=== PATIENT | female | born 1950 | race Caucasian/White ===

== ENCOUNTER 2024-10-03 17:45 | Emergency (ER) | payer MEDICARE, MEDICAID ==
[~2024-10-03] VITALS: Ht 162.6 cm; Wt 75.8 kg
--- NOTE | ~2024-10-03 | EKG ---
[facility] [address] [facility] [place], [place] [address] Draft EK completed, results pending confirmation PATIENT NAME: ALLEN HORN Electrocardiogram DATE OF : 48 PHYSICIAN: PRELIMINARY REPORT #: [id number] REPORT IS CONFIDENTIAL AND NOT TO BE RELEASED WITHOUT AUTHORIZATION
[2024-10-03] MEDS ORDERED: NITROGLYCERIN 0.4 MG SUBL SL PRN (18:00)
[2024-10-03 18:18] LABS: BASOPHILS 0.4 % (0-2); EOSINOPHILS 0.4 % (0-6); HEMOGLOBIN 9.9 g/dL (12.0-18.0); MCH 27.7 (27-36); MCHC 33.1 g/dl (30-36); MCV 83.7 fl (81-99); MONOCYTES 4.7 % (0-12); NEUTROPHILS 81.5 % (39-80); PLATELET COUNT 257 K/uL (140-440); RBC 3.58 M/ul (4.3-5.7); RDW 24.5 (10.5-15.0)
[2024-10-03] MEDS ORDERED: CLOPIDOGREL BISULFATE 75 MG TAB PO ONE (18:30)
[2024-10-03] MEDS ORDERED: HEPARIN SOD,PORK IN 0.45% NACL 500 ML IV SCH (18:30)
[2024-10-03] MEDS ORDERED: MORPHINE SULFATE 4 MG/ML VIAL IV PRN (18:30)
[2024-10-03] MEDS ORDERED: LORazepam 2 MG/ML VIAL IV ONE ×2 (18:30→18:45)
[2024-10-03] MEDS ORDERED: HEParin SOD (PORCINE) 5,000 UNIT/ML VIAL IV ONE (18:30)
[2024-10-03] MEDS ORDERED: LORazepam 2 MG/ML VIAL ONE (18:32)
[2024-10-03 18:35] LABS: ALBUMIN 3.8 g/dL (3.4-5.0); ALBUMIN/GLOBULIN RATIO 0.93 (1.1-2.4); ALKALINE PHOSPHATASE 106 U/L (46-116); ALT (SGPT) 46 U/L (14-59); ANION GAP 13.9 (7-21); AST (SGOT) 324 U/L (15-37); BILIRUBIN, TOTAL 0.3 mg/dL (0.2-1.0); BUN/CREATININE RATIO 17.64 (6.0-28.6); CALCIUM 8.9 mg/dL (8.5-10.1); CARBON DIOXIDE 27 mmol/L (21-32); CHLORIDE 102 mmol/L (98-107); CREATININE, SERUM 1.19 mg/dL (0.55-1.02); GLOMERULAR FILTRATION RATE,EST 48 mL/min (>60); MAGNESIUM 1.8 mg/dL (1.8-2.4); POTASSIUM 3.9 mmol/L (3.5-5.1); PROTEIN, TOTAL 7.9 g/dL (6.4-8.2); UREA NITROGEN 21 mg/dL (7-18)
[2024-10-03 19:02] VITALS: BP 134/78
== END 2024-10-03 18:49 | disposition short-term general hospital (02) ==
LOC: ED 17:45
PROVIDERS: Emergency Medicine
DX: I21.09 ST elevation (STEMI) myocardial infarction involving other coronary artery of anterior wall (principal); Z88.5 Allergy status to narcotic agent
CPT/HCPCS: 36415; 71045; 80053; 83735; 84484; 85025; 85060; 93005; 93010; 96374; 96375; 99285-25; J1644; J2060

== ENCOUNTER 2024-10-10 20:15 | Inpatient (IN) | payer MEDICARE, MEDICAID ==
[~2024-10-10] VITALS: Ht 162.6 cm; Wt 75.8 kg
--- NOTE | 2024-10-10 20:15 | NUR ---
PT REC'D FROM [facility] VIA EMS TRANSPORT. PT ARRIVED ON STRETCHER, ALERT AND ORIENTED. PT ASSISTED TO BED, ORIENTED TO ROOM. REPORT REC'D. CALL [place] AND PERSONAL ITEMS IN REACH, BED IN LOW POSITION AND LOCKED, SIDERAILS UP X3, BED ALARM ON.
[2024-10-10] MEDS ORDERED: ATROPINE SULFATE 1% OPTH DROPS SL PRN (21:00)
[2024-10-10] MEDS ORDERED: OXYCODONE HCL 5 MG TAB PO PRN (21:00)
[2024-10-10] MEDS ORDERED: ARTIFICIAL TEARS 15 ML BTL OU PRN (21:00)
[2024-10-10] MEDS ORDERED: LORazepam 0.5 MG TAB PO PRN (21:00)
--- NOTE | 2024-10-10 21:00 | NUR ---
PT ASSISTED TO [facility] 1 PA WITH FWW, PT NOTED TO BE WEAK, NEEDING ASSISTANCE OOB, WEAK, SLOW GAIT. RETURNED TO BED. BED ALARM ON, BED LOW POSITION, LOCKED, SIDERAILS UP X3, CALL [place]LAND IN REACH
[2024-10-10 21:03] VITALS: BP 137/69
--- NOTE | 2024-10-10 21:09 | NUR ---
PATIENT ARRIVED TO THE FLOOR VIA EMS. PATIENT IS A XFER FROM [place]. PATIENT ARRIVED APPROX 2014. MD AT BEDSIDE TO COMPLETE ORDERS. ADMISSION COMPLETED.
[2024-10-10] MEDS ORDERED: ACETAMINOPHEN 325 MG TAB PO PRN (21:30)
[2024-10-10] MEDS ORDERED: ondansetron HCL 4 MG/2 ML VIAL IV PRN (21:30)
[2024-10-10 21:42] VITALS: BP 137/69
[2024-10-10] MEDS ORDERED: DEXTROSE 5% 1,000 ML IV PRN (21:45)
[2024-10-10] MEDS ORDERED: GLUCAGON,HUMAN RECOMBINANT 1 MG/ML VIAL SUB-Q PRN (21:45)
[2024-10-10] MEDS ORDERED: IBLOOD GLUCOSE TEST STRIP 1 EA TEST XX PRN (21:45)
[2024-10-10] MEDS ORDERED: DEXTROSE 50% 50 ML SYR IV PRN ×2 (21:45)
--- NOTE | 2024-10-10 22:05 | NUR ---
ASSESSMENT COMPLETED, PATIENT STATING SHE NEEDS TO GO TO [facility], STATES SHE HAS LEAKAGE WITH COUGHING. BROUGHT DEPEND TO PATIENT, SHE THREW BRIEF AND STATED "I DON'T LIKE THOSE". PT TAKEN TO [facility] WITH 1 PERSON ASSIST, FWW. RETURNED TO BED, SIDERAILS UP X3, CALL [place] IN REACH, BED LOW POSITION AND LOCKED, BED ALARM ON.
[2024-10-10] MEDS ORDERED: MENTHOL/CETYLPYRD CL 1 LOZ LOZENGE PO PRN (22:30)
--- NOTE | 2024-10-10 22:55 | NUR ---
PT ADMITTED, CARED FOR T/O SHIFT. PT STARTED TO BECOME AGITATED WHILE HAVING IV PLACED, REFUSED LAB DRAW. ORDER REC'D FOR IV ATIVAN FOR AGITATION.
[2024-10-10] MEDS ORDERED: LORazepam 2 MG/ML VIAL IV PRN (23:00)
--- NOTE | 2024-10-10 23:36 | NUR ---
AT 2315 RECEIVED REPORT FROM LUNA TREVIZO. PT IN BED, TV ON, EYES CLOSED, RESP EVEN AND UNLABORED. BED ALARM IN PLACE. LUNA.
[2024-10-11] VITALS (7 sets, daily range): BP systolic 100–146; BP diastolic 51–81
--- NOTE | 2024-10-11 00:34 | NUR ---
BED ALARM SOUNDING. PT UP TO BR WITH SBA, FWW. SL UNSTEADY; VOIDED, (MISSED HAT). ENCOURAGED TO WASH HANDS, BUT PT WALKED BACK TO BED INSTEAD. INDEPENDENT IN BED. NOTED NO RASH ON BACK SIDE, DESPITE PT FEELING "ITCHY". BED ALARM PLACED. WARM BLANKET PROVIDED. ENCOURAGED PT TO USE ALL LIGHT. CALL LIGHT WITHIN REACH.
[2024-10-11] MEDS ORDERED: ONDANSETRON 4 MG TAB ODT SL SCH (02:00)
--- NOTE | 2024-10-11 02:04 | NUR ---
frame bender and rn into room for 0200 vs. Pt requested to use br. SBA with fww.
--- NOTE | 2024-10-11 02:49 | NUR ---
VS COMPLETED. PT AWAKE AND EATING ICE CHIPS. BED ALARM IN PLACE
--- NOTE | 2024-10-11 04:43 | NUR ---
BED ALARM SOUNDING. AWAKE, AND NEEDING TO USE BATHROOM, CALL LIGHT WITHIN REACH. MADHU ASSIST UP TO WALKER, SLOW, SL UNSTEADY GAIT. NOTABLE DRY, NONPRODUCTIVE COUGH THIS SHIFT OFF AND ON. APPROPRIATE, NON IRRITATED MOOD NOTED. RN REPEATS PARTS OF CONVERSATION, PT NOT HEARS WELL, OR COMPREHENDS. LUNG SOUNDS CLEAR X 4. BACK TO BED, SITTING EATTING ICE CHIPS
--- NOTE | 2024-10-11 06:15 | NUR ---
WITH ENCOURAGEMENT AND REASONING TO WHY THE BLOOD NEEDS TO BE DRAWN, SHE ALLOWED LABS TO BE DRAWN. PT STATES SHE DOESN'T NEED MEDICAL CARE. PREFERING TO SLEEP WAS HER REASONING. CURRENTLY SLEEPING, BED ALARM ON.
[2024-10-11 06:21] LABS: HEMATOCRIT 31.1 % (35.0-50.0); HEMOGLOBIN 10.2 g/dL (12.0-18.0); MCH 27.4 (27-36); MCHC 32.8 g/dl (30-36); MCV 83.5 fl (81-99); PLATELET COUNT 128 K/uL (140-440); RBC 3.72 M/ul (4.3-5.7); RDW 24.1 (10.5-15.0)
[2024-10-11 06:30] LABS: BANDS, MANUAL DIFF 1; EOSINOPHILS, MANUAL DIFF 2; LYMPHOCYTES, MANUAL DIFF 17; MONOCYTES, MANUAL DIFF 9; NEUTROPHILS, MANUAL DIFF 71
[2024-10-11 06:36] LABS: ANION GAP 13.4 (7-21); BUN/CREATININE RATIO 24.49 (6.0-28.6); CALCIUM 7.9 mg/dL (8.5-10.1); CREATININE, SERUM 2.98 mg/dL (0.55-1.02); MAGNESIUM 1.8 mg/dL (1.8-2.4); POTASSIUM 3.4 mmol/L (3.5-5.1)
--- NOTE | 2024-10-11 06:55 | NUR ---
WITH PROMPTING, FIRM ENCOURAGEMENT PT PREFERED TO SLEEP, PT DID NOT OPEN EYES BUT OPENED HER MOUTH FOR DRINK WATER, AND SWALLOWED HER THYROID MEDICATION.
[2024-10-11] MEDS ORDERED: LEVOTHYROXINE SODIUM 50 MCG TAB PO SCH (07:00)
--- NOTE | 2024-10-11 07:21 | NUR ---
report from manager night.
[2024-10-11] MEDS ORDERED: SODIUM CHLORIDE 0.9% 1,000 ML IV SCH (07:30)
[2024-10-11] MEDS ORDERED: POTASSIUM CHLORIDE 10 MEQ TABCR PO ONE (07:30)
--- NOTE | 2024-10-11 07:43 | NUR ---
MORNING ASSESSMENT IS COMPLETE. PATIENT IS RESTING IN BED. O2 SATS ARE 100% ON ROOM AIR, EXPIRATORY WHEEZE NOTED IN ALL LUNG LAWRENCE. PATIENT IS UNABLE TO TELL NURSE WHEN SHE LAST HAD A BM, DENIES FEELING CONSTIPATED. PATIENT IS EATING ICE CHIPS, AWAITING BREAKFAST. PATIENT DENIES PAIN OR NAUSEA. PATIENT IS ABLE TO TAKE MEDS AND FOLLOW DIRECTIONS. BG IS 149 THIS MORNING. NO OTHER NEEDS AT THIS TIME.
[2024-10-11] MEDS ORDERED: IBLOOD GLUCOSE TEST STRIP 1 EA TEST XX SCH (08:00)
[2024-10-11] MEDS ORDERED: ASPIRIN 81 MG CHEW PO SCH (08:00)
[2024-10-11] MEDS ORDERED: INSULIN LISPRO 100 UNIT/ML ML SUB-Q SCH (08:00)
[2024-10-11] MEDS ORDERED: LOSARTAN POTASS25 MG PO (08:15)
[2024-10-11] MEDS ORDERED: ISOSORBIDE MONO30 MG PO (08:15)
[2024-10-11] MEDS ORDERED: NITROGLYCERIN0.4 MG SL (08:17)
[2024-10-11] MEDS ORDERED: METOPROLOL SUCCINATE 25 MG TABCR PO SCH (09:00)
[2024-10-11] MEDS ORDERED: ENOXAPARIN SODIUM 30 MG/0.3 ML SYR SUB-Q SCH (09:00)
[2024-10-11] MEDS ORDERED: SENNOSIDES/DOCUSATE 1 EA TAB PO SCH (09:00)
--- NOTE | 2024-10-11 09:00 | NUR ---
Attempted to speak with Nay. Notified by staff, pt is refusing all treatments. Pt does states she has a DrJonathan in [place], [place], but will not give his name. She lives with her Ex, but will not provide any infor or phone number. Pt denies she has any other family members. I was then notified by staff, pt has a brother and TIFFANIE who have assisted her in the past. Pt declines to answer further questions.
--- NOTE | 2024-10-11 09:10 | NUR ---
ATTEMPTING TO GIVEN PATIENT MORNING MEDICATIONS. PATIENT REFUSED LOVENOX, REFUSED SENNA. PATIENT AGREED TO TAKE METOPROLOL, BUT PLACED PILL CUP ON TOP OF HER FOOD. PT AND OT IN TO SEE PATIENT.
--- NOTE | 2024-10-11 09:25 | NUR ---
PATIENT IS RESTING IN BED.
--- NOTE | 2024-10-11 09:26 | NUR ---
UR CLINICAL REVIEW: 2 MN SALVADOR, MEETS INPT FOR STEMI AND CARLOZ IV FLUIDS, TREND LABS MEDICARE INPT 10/10/24 @ 2120 ORDER MATCHES REG NO AUTH REQUIRED PER MEDICARE RULES DC PLAN PENDING FURTHER EVAL, TREATMENT AND ASSESSMENT UNSURE GOALS OF CARE AT THIS TIME
--- NOTE | 2024-10-11 10:30 | NUR ---
AGAIN, ENCOURAGED PATIENT TO TAKE HER MORNING CARDIAC MEDS. PATIENT RESPONDED, "CAN'T I JUST SLEEP." PATIENT WENT BACK TO SLEEP.
--- NOTE | 2024-10-11 11:15 | NUR ---
PATIENT UP TO BATHROOM TO VOID. PATIENT AGREED TO TAKE HER CARDIAC MEDICATION FROM THIS MORNING.
[2024-10-11] MEDS ORDERED: PHARMACY RENAL DOSE ADJUSTMENT 1 DOSE MISC PO SCH (12:00)
--- NOTE | 2024-10-11 12:24 | NUR ---
PATIENT REFUSED SQ INSULIN FOR BG OF 196. PATIENT IS AGITATED REGARDING IV AND CURRENTLY UNHOOKED. PATIENT HAD 600ML OF IVF INSTEAD OF FULL LITER. PATIENT UP TO BATHROOM TO VOID AD SONNY. NO OTHER NEEDS AT THIS TIME.
[2024-10-11] MEDS ORDERED: MELOXICAM15 MG PO (12:49)
[2024-10-11] MEDS ORDERED: LEVOTHYROXINE50 MCG PO (12:50)
[2024-10-11] MEDS ORDERED: ROSUVASTATIN CA40 MG PO (12:50)
--- NOTE | 2024-10-11 12:50 | NUR ---
MED REC COMPLETE
--- NOTE | 2024-10-11 13:00 | NUR ---
Spoke with pts brother, James. He confirms pt lives in [place] and has a room at her exes. She has a mascorro to the home. He does not have the phone number for Eran Enrique, exbrother in law. He will call his brother to check if he does. WE discussed calling the police in [place] to check if Eran still lives in [place]. Brother James has not been there in 2 years.
--- NOTE | 2024-10-11 13:58 | NUR ---
PATIENT PUREWICK CHANGED. PATIENT WAS INCONTINENT AROUND [facility], ESHA CARE DONE, NEW ATTENDS ARE ON. PATIENT REPOSITIONED UP IN BED AND TO LEFT SIDE. SCHEDULED TYLENOL GIVEN, PATIENT CONTINUES TO REPORT NO PAIN.
--- NOTE | 2024-10-11 15:00 | NUR ---
Returned and spoke with Nay. She has declined labs. She declines any further treatment and would like a taxi ride to [facility]. She declines to give a phone number or state where or who she lives with. This was discussed with nurses and Dr. Cesar. I did call dispatch for [facility]. They state Nay lived a the address 2 years ago, but they have not had contact since then. They will page out an officer to check the address and request they call me.
--- NOTE | 2024-10-11 15:01 | NUR ---
patient is resting in bed, no needs.
--- NOTE | 2024-10-11 16:02 | NUR ---
PATIENT REFUSED LABS, UP TO BATHROOM AND WARM BLANKETS PROVIDED.
--- NOTE | 2024-10-11 16:38 | NUR ---
Patient brother called requesting to speak with patient's primary RN for medical information/updates. Patient reports she does not want her medical information released at this time. Updated primary RN, Cecily. Patient resting in bed at this time.
[2024-10-11] MEDS ORDERED: ATORVASTATIN 40 MG TAB PO SCH (17:00)
--- NOTE | 2024-10-11 17:03 | NUR ---
PATIENT AGREED TO TAKE EVENING MEDICATIONS, THEN REFUSED TO TAKE THEM WHEN NURSE HAD THEM IN ROOM.
--- NOTE | 2024-10-11 17:15 | NUR ---
GOT PATIENT TWO WARM BLANKETS. AND CUP OF ICE AND ICE WATER.
--- NOTE | 2024-10-11 19:08 | NUR ---
THIS MORNING GOT PATIENT A TOOTH BRUSH AND TOOTH PASTE ALSO A HAND TOWEL AND WASH CLOTH. STILL IN PATIEN'T BATHROOM.
--- NOTE | 2024-10-11 19:30 | NUR ---
REPORT RECEIVED FROM DAY SHIFT RN. PATIENT RESTING IN BED. BED ALARM ON. CALL LIGHT IN REACH.
--- NOTE | 2024-10-11 20:05 | NUR ---
bed alarming. PATIENT UP TO USE THE BATHROOM USING OWN WALKER. PATIENT SAT THERE FOR 10MINS. PATIENT VOIDED UNMEASURED. PATIENT IS BACK IN BED. ICE HIPS PROVIDED PER PATIENT. BED ALARM ON FOR SAFETY.
--- NOTE | 2024-10-11 20:58 | NUR ---
THIS RN IN TO PATIENTS ROOM TO ASK PATIENT IF WE COULD DO HER EVENING CARES AND SCHEDULED MEDICATIONS. PATIENT STATED THAT WE COULD TAKE HER BLOOD SUGAR BUT NOT GIVE HER INSULIN. WHEN THIS RN AND DARLENE KAHN WENT INTO ROOM TO OBTAINED VS, BS, AND GIVE EVENING MEDICATION PATIENT STATED "NOPE I DONT WANT THIS DONE. I AM COLD". THIS RN EDUCATED THE IMPORTANCE OF EVENING MEDICATIONS WELL OBTAINING VS, BS AND INSULIN. PATIENT VERBILIZED UNDERSTANDING. BED ALARM ON. CALL LIGHT IN REACH.
--- NOTE | 2024-10-11 21:00 | NUR ---
MD BELTRAN ON FLOOR. THIS RN UPDATED MD THAT PATIENT REFUSING ALL CARES AND MEDICATIONS. MD NOBLES.
--- NOTE | 2024-10-11 23:22 | NUR ---
PATIENT RESTING IN BED ON RIGHT SIDE. RESPIRATIONS EVEN AND UNLABORED. CALL LIGHT IN REACH.
[2024-10-12] VITALS (10 sets, daily range): BP systolic 108–147; BP diastolic 54–72
--- NOTE | 2024-10-12 00:05 | NUR ---
BED ALARM, ALARMING. PATIENT UP TO BATHROOM TO USING 1P SBA AND FWW TO VOID. PATIENT BACK TO BED. CALL LIGHT IN REACH. BED ALARM ON.
--- NOTE | 2024-10-12 01:45 | NUR ---
BED ALARMING. IDEA MAN IN TO THE ROOM. PATIENT IS ALREADY IN THE BATHROOM LIGHTS OFF AND NO WALKER. IDEA MAN BROUGHT THE WALKER IN FRONT OF PATIENT AND BATHROOM LIGHTS ON. PATIENT SAT ON THE TOILET FOR 15MINS. THIS IDEA MAN HEARD PATIENT COUGHING AND BLOWING NOSE. PATIENT IS BACK IN BED. WARM BLANKET PROVIDED. BED ALARM ON FOR SAFETY.
--- NOTE | 2024-10-12 03:57 | NUR ---
PATIENT RESTING IN BED WITH EYES CLOSED. RESPIRATIONS EVEN AND UNLABORED. CALL LIGHT IN REACH.
--- NOTE | 2024-10-12 04:51 | NUR ---
BED ALARM, ALARMING. THIS RN EDUCATED PATIENT TO WAIT FOR STAFF TO HELP HER GET OUR OF BED SO SHE DOES NOT FALL. PATIENT UP TO BATHROOM TO VOID USING 1P SBA AND FWW. PATIENT BACK TO BED. PATIENT AGREEABLE TO LET THIS RN OBTAINED VS. VS I&Os OBTAINED AND RECORDED. SCHEDULED MEDICATION ADMINSITERED. ICE CHIPS PROVIDED. PATIENT DENIES FURTHER NEEDS. BED ALARM ON. CALL LIGHT IN REACH.
[2024-10-12 06:19] LABS: BASOPHILS 0.5 % (0-2); EOSINOPHILS 0.8 % (0-6); HEMATOCRIT 30.1 % (35.0-50.0); MCH 27.8 (27-36); MCHC 33.1 g/dl (30-36); MCV 83.8 fl (81-99); MONOCYTES 10.4 % (0-12); NEUTROPHILS 80.3 % (39-80); PLATELET COUNT 144 K/uL (140-440); RDW 23.9 (10.5-15.0)
[2024-10-12 06:29] LABS: ANION GAP 15.3 (7-21); BUN/CREATININE RATIO 23.6 (6.0-28.6); CALCIUM 7.8 mg/dL (8.5-10.1); CREATININE, SERUM 2.33 mg/dL (0.55-1.02); MAGNESIUM 1.6 mg/dL (1.8-2.4); POTASSIUM 3.3 mmol/L (3.5-5.1)
--- NOTE | 2024-10-12 07:48 | NUR ---
REPORT RECEIVED FROM NIGHT RN - PT RESING IN BED ON RIGHT SIDE, RR EVEN AND UNLABORED. DOOR OPEN AND CALL LIGHT IN REACH.
[2024-10-12] MEDS ORDERED: SODIUM CHLORIDE 0.9% 1,000 ML IV SCH (08:00)
[2024-10-12] MEDS ORDERED: MAGNESIUM CHLORIDE 64 MG TABCR PO ONE (08:00)
[2024-10-12] MEDS ORDERED: POTASSIUM CHLORIDE 10 MEQ TABCR PO ONE (08:00)
--- NOTE | 2024-10-12 08:15 | NUR ---
RN IN ROOM TO ASSESS PT - ROTARY ENGRAVER IN ROOM WELL AND ABLE TO OBTAIN CBG THIS AM. PT RESTING IN BED ON SIDE AND DOES NOT ANSWER QUESTIONS EXCEPT TO STATE "NO" WHEN ASKED IF RN CAN UNCOVER HER TO ASSESS HER ABD. LUNG SOUNDS AUSCULTATED FROM POSTERIOR , LFET UPPER AND LOWER NOTED WITH EXP WHEEZE. PT APPEARS DROWSY IN BED. IV SITE FLUSHED AND PATENT, WNL. BED ALARM ON , SIDE RAILS UP AND BEDSIDE TABLE IN REACH.
--- NOTE | 2024-10-12 09:28 | NUR ---
In to speak with Nay. Dr. Cesar in the room explaining he plans on discharging her as she cont. to decline all treatments. Pt stating she can't go home as she has needs. When I asked what her needs are, she states she needs a place to stay. We discussed the hospital isn't a place to live. I can help her with placement. Pt now has changed her mind and states she is agreeable to lab draws, PT/OT, medications, and IV fluid. Pt cont. to refuse to give information about where she was living. She now states she cannot return there. She is also stating we cannot discuss any infor with her family. Dr. Cesar agrees for pt to stay as long as she is in agreement for treatment. He repeated several times he does not want to force her to accept treatment, but states she now wants treatment.
[2024-10-12] MEDS ORDERED: MAGNESIUM CHLORIDE 64 MG TABCR ONE (09:38)
--- NOTE | 2024-10-12 09:50 | NUR ---
RN IN ROOM TO ADDRESS BED ALARM - PT FOUND WALKING NAKED IN ROOM TO BATHROOM WITHOUT WALKER, UNSTEADY ON FEET AND NOT FOLLOWING DIRECTIONS. PT BLOWING NOSE IN BATHROOM WITHOUT TISSUE SPRAYING BLOOD ON WALL FROM PICKING NOSE. PT ASKED SEVERAL TIMES TO USE TISSUE. PT DOES COMPLY WITH WASHING HANDS AT SINK WITH SOAP. PT BACK TO CHAIR WITH CLEAN GOWN, BREAKFAST PLACED IN FRONT ON TRAY TABLE. MD AND CASE MANAGMENT IN ROOM TO ROUND. PT AGREES TO TAKE MEDICATION AND COMPLY WITH ALL CARES. AM MEDICATIONS ADMINISTERED, ASSESSMENT AND VS COMPLETE. CHAIR ALARM IN PLACE, CALL LIGHT IN REACH.
--- NOTE | 2024-10-12 11:31 | NUR ---
PATIENT WAS SITTING UP IN HER CHAIR EATING HER BREAKFAST. WE GOT HER MORE ICE CHIPS AND ICE WATER. BED LINENS CHANGED. PAITENT WASHED HER FACE AND I WASHED HER HANDS. TOOTH PASTE IS ON TOOTH BRUSH.
--- NOTE | 2024-10-12 12:14 | NUR ---
UPDATE PROVIDED TO BROTHER VIA TELEPHONE.
--- NOTE | 2024-10-12 12:47 | NUR ---
PT RESTING IN CHAIR WITH TABLE IN FRONT OF HER, EYES CLOSED RR EVEN AND UNLABORED. PT WAKES EASILY - AGREES TO INSULIN DOSE. CHAIR ALARM ON AND CALL LIGHT IN REACH.
--- NOTE | 2024-10-12 13:45 | NUR ---
Spoke with Pennie from [facility]. She states they have been attempting to contact this pt as a referral was made from [place]. Pt has not answered any of their calls. She will email the CM for this pt and notify her pt is in the hospital.
--- NOTE | 2024-10-12 14:00 | NUR ---
RN ROUNDING ON PT - PT RESTING IN CHAIR AND STATES SHE HAS TO GO TO THE BATHROOM. ASSISTED UP USING WALKER, STANDBY ASSIST MANAGING IV POLE. PT CONTINUES TO BLOW NOSE WITHOUT TISSUE SPRAYING SNOT AND BLOOD FAR ENOUGH TO HIT BATHROOM WALL. PT AGAIN ASKED TO USE TISSUE FOR STAFF PROTECTION. PT DID COMPLY WITH WASHING HANDS IN SINK WITH SOAP. PT BECOMING INCREASINGLY AGGITATED AND POINTED FINGER CLOSLEY IN RN FACE. PT WARNED THIS IS NOT APPROPRIATE BEHAVIOR. PT BACK TO BED WITH CLEAN GOWN AND WARM BLANKET. BEDSIDE REPORT PROVIDED TO RN'S ASSUMING CARE.
--- NOTE | 2024-10-12 14:20 | NUR ---
REPORT RECEIVED FROM ARELI LUONG RN. PATIENT IS LYING IN BED WITH EYES OPEN AND RESPIRATIONS ARE EVEN AND UNLABORED. BED ALARM ON. PATIENT STATED NO FURTHER NEEDS AT THIS TIME. CALL LIGHT AND PERSONAL BELONGINGS ARE WITHIN REACH.
--- NOTE | 2024-10-12 14:41 | NUR ---
PATIENT IS LYING IN BED WITH HOB ELEVATED. PATIENT HAS EYES OPEN WITH EVEN AND UNLABORED RESPIRATIONS. PATIENT HAS CALL LIGHT AND PERSONAL BELONGINGS WITHIN REACH.
--- NOTE | 2024-10-12 15:40 | NUR ---
Met with Dr. Cesar in pts room. He is discussing with pt the need to dc, if she cont. to refuse treatment. Pt again stating she doesn't want to go. Pt declines to give info to of where she was staying when she originally came to the hospital. I asked if we can call her brother to assist her. Pt declines. I asked pt if she wants to return to her home in [place] (this is where her brother James stated she lives and pays rent) or if she would like to discharge to the snf here in [facility]. I let her know, at this time it is not guaranteed there will be a bed available. I let her know we will send her by taxi to [place] if she chooses. Pt cont. to state she will allow the nurses to assess her. discussed with her they already had this discussion this morning. He also let her know her labs are improving and she will most likely be ready for discharge tomorrow. I asked her if she can let me know her plan for dc. I will assist to wherever she wants to go. I then asked her about her lateral transfer to our hospital as a [facility] pt, she then declined this when she arrived. I asked if this is something she is still interested in. She denies and wants full treatment. I asked her about CPR and intubation and she states I would need to discuss with her brother, James. again discussed with her her doesn't want to force treatment on her she doesn't want. Pt now stating she will comply with treatment. I discussed with pt it is fraud for us to bill Medicare when she is refusing treatment. Pt states she will not refuse treatment if she can stay. She thinks she would like to go to the [facility] tomorrow, if she is discharged. agrees for her to stay, but lets her know this is the last time this will happen. Pt states understanding.
--- NOTE | 2024-10-12 15:45 | NUR ---
PATIENT LYING IN BED WITH HOB ELEVATED. PATIENT CONTINUES TO BE NON-COMPLIANT. PATIENT, TIN POURER, KEE, PRIMARY NURSE, NALLELY, HOSPITALIST, DR. BELTRAN, AND THIS COMMUNITY RELATIONS OFFICER IN ROOM DISCUSSING OPTIONS AT THIS TIME. PATIENT IS ON HER LAST CHANCE TO ALLOW US TO PROVIDE CARE PER MD. PATIENT EXPRESSED UNDERSTANDING AND WOULD LIKE TO STAY. PATIENT STATED NO FURTHER NEEDS AT THIS TIME. CALL LIGHT AND PERSONAL BELONGINGS ARE WITHIN REACH.
--- NOTE | 2024-10-12 16:20 | NUR ---
PATIENT AMBULATED BACK TO BED WITH DARLENE TREADWELL AND WHEELCHAIR. PATIENT TOLERATED WELL AND IS SITTING ON THE EDGE OF BED. FULL ASSESSMENT COMPLETE AND DOCUMENTED IN THE CHART. PATIENT IS ALERT AND ORIENTED TIMES FOUR. NS IS INFUSING AT 125 ML/HR. IV SITE IS CLEAN, DRY, AND INTACT. PATIENT IS ON A 60 GRAM CARB DIET. BOWEL TONES ARE ACTIVE IN ALL FOUR QUADRANTS. ABDOMEN IS MILDY DISTENDED. ABDOMEN IS TENDER WITH MOVEMENT AND PATIENT REPORTS THIS IS NOT NEW. PATIENT IS ON ROOM AIR. LUNG SOUNDS ARE CLEAR IN THE UPPER LOBES WITH CRACKLES IN THE BASES BILATERALLY. PATIENT WITH NO COMPLAINTS OF SOB. BLE WITH WEAKNESS NOTED. PATIENT WITH A FLAT AFFECT. PATIENT WITH A DRY AND HACKING COUGH. CARIAC WITH NORMAL S1 AND S2 ON AUSCULTATION. RADIAL PULSES ARE STRONG BIALTERALLY. CAPILLARY REFILL IN THE UPPER EXTREMITIES IS LESS THAN 3 SECONDS BILATERALLY. NO EDEMA NOTED. SENSATION INTACT WITH NO COMPLAINTS OF NUMBNESS OR TINGLING. SKIN WITH SCATTERED SCRATCHES, SCABS, TATTOOS, AND BRUISES. PATIENT WITH NO COMPLAINTS OF PAIN. PATIENT STATED NO FURTHER NEEDS AT THIS TIME. CALL LIGHT AND PERSONAL BELONGINGS ARE WITHIN REACH. DARLENE TREADWELL PROVIDED PATIENT WITH A NEW CUP OF ICE.
--- NOTE | 2024-10-12 16:22 | NUR ---
I called [facility]. Pt would need to arrive at their office between 8-2 on at [address] for an evaluation to go to the correction. 01-30 on Thursday. Will work with this pt to get to [facility] tomorrow if she is discharged.
--- NOTE | 2024-10-12 18:27 | NUR ---
MD NOTIFIED OF PATIENT WITH WHEEZING NOTED. MD STATED HE WOULD PUT IN ORDERS. MD STATED TO HOLD THE FLUIDS AT THIS TIME. MD WITH NO FURTHER ORDERS AT THIS TIME. RT CALLED REGARDING NEW ORDERS. CHANO, RT STATED HE WOULD BE DOWN TO ASSESS HER SOON.
--- NOTE | 2024-10-12 18:30 | NUR ---
BROUGHT HER A CUP OF ICE IN DURING LUNCH TIME AND ALSO DINNER TIME.
--- NOTE | 2024-10-12 18:40 | NUR ---
NOTIFIED OF PATIENT REFUSING BREATHING TREATMENT. CHANO RT SPOKE WITH ON THE PHONE WELL. PATIENT BOOSTED AND REPOSITIONED IN BED. PATIENT TOLERATED WELL. MAINTENANCE FLUIDS DISCONTINUED. IV FLUSHED WITH 10 ML NORMAL SALINE AND IS SALINE LOCKED. IV DRESSING IS CLEAN, DRY, AND INTACT. PATIENT STATED NO FURTHER NEEDS AT THIS TIME. CALL LIGHT AND PERSONAL BELONGINGS ARE WITHIN REACH.
[2024-10-12] MEDS ORDERED: ALBUTEROL SULFATE 0.083% 3 ML VIAL INH PRN (19:00)
--- NOTE | 2024-10-12 19:30 | NUR ---
REPORT RECEIVED FROM DAY SHIFT RN. PATIENT RESTING IN BED WITH EYES CLOSED. RESPIRATIONS EVEN AND UNLABORED. CALL LIGHT IN REACH. BED ALARM ON.
--- NOTE | 2024-10-12 20:15 | NUR ---
BED ALARM SOUNDING. SBA WITH WALKER TO RESTROOM FOR VOID AND LARGE BM, LIQUID/SOFT, FILLS ENTIRE HAT. URINE MIXED WITH STOOL. pt REFUSES TO CLEAN ESHA AREA PRIOR TO VOID FOR ATTEMPT AT CLEAN CATCH. ASSISTED BROWNING PROCESSOR WITH LAB DRAW. AND PRIMARY RN NOW IN ROOM, UPDATED ON NO CLEAN CATCH AT THIS TIME. VERBAL ORDER FOR RESPIRATORY VIRAL SWAB, COMPLETED BY THIS RN. BED ALARM ON.
[2024-10-12 20:17] LABS: ANION GAP 14.8 (7-21); BUN/CREATININE RATIO 22.43 (6.0-28.6); CALCIUM 7.8 mg/dL (8.5-10.1); CREATININE, SERUM 2.05 mg/dL (0.55-1.02); POTASSIUM 3.8 mmol/L (3.5-5.1)
--- NOTE | 2024-10-12 20:20 | NUR ---
THIS RN AND GEOPHYSICAL PROSPECTING PERMIT AGENT IN ROOM. VS AND I&Os OBTAINED AND RECORDED. MD BELTRAN IN ROOM. MD GAVE VERBAL ORDER THIS IT IS OK TO START ABX BEFORE UA IS OBTAINED. ASSESSMENT COMPLTE. PATIENT HAS NO FURTHER NEEDS. CALL LIGHT IN REACH. BED ALARM ON.
[2024-10-12 20:58] LABS: INFLUENZA B NAA NEGATIVE (NEGATIVE); RESPIRATORY SYNCYTIAL VIR NAA NEGATIVE (NEGATIVE)
[2024-10-12] MEDS ORDERED: CEFTRIAXONE SODIUM 2 GM in SODIUM CHLORIDE 0.9% 100 ML IV SCH (21:00)
[2024-10-12] MEDS ORDERED: AZITHROMYCIN 500 MG in DEXTROSE 5% 250 ML IV SCH (21:00)
--- NOTE | 2024-10-12 21:20 | NUR ---
PATIENT RESTING IN BED. SCHEDULED IV ABX INFUSING PER ORDER. PATIENT EDUCATED TO CALL IF SHE NEEDS TO GET OUT OF BED SO THAT THE IV DOES NOT GET PULLED OUT. BED ALARM ON. PATIENT DENIES FURTHER NEEDS. CALL LIGHT IN REACH. IV FLUSHES WNL.
--- NOTE | 2024-10-12 21:51 | NUR ---
BED ALARM ANSWERED. PT AT EDGE OF BED AND STATED THE NEED TO USE BATHROOM. PAIN MANAGEMENT PHYSICIAN 1PA WITH FWW TO BATHROOM. PT VOIDED AND ASSISTED BACK TO BED. URINE SAMPLE COLLECTED AND SENT. PT STATES NO FURTHER NEEDS AT THIS TIME. CALL LIGHT WITHIN REACH AND BED ALARM ON.
[2024-10-12 21:53] LABS: BILIRUBIN, URINE NEGATIVE (negative); BLOOD/HGB, URINE SMALL (Negative); KETONE, URINE NEGATIVE (Negative); LEUK ESTERASE, URINE NEGATIVE (negative); NITRITE, URINE POSITIVE (negative)
[2024-10-12 22:00] LABS: BACTERIA, URINE 4+ /hpf (negative); CASTS, URINE NONE SEEN \\lpf; COLLECTION TYPE, URINE CLEAN CATCH; CRYSTALS, URINE NONE SEEN (0-1+)
[2024-10-12 22:01] LABS: REFLEX CULTURE, URINE Yes (No)
--- NOTE | 2024-10-13 00:06 | NUR ---
PATIENT RESTING IN BED WITH EYES CLOSED. RESPIRATIONS EVEN AND UNLABORED. CALL LIGHT IN REACH.
--- NOTE | 2024-10-13 01:31 | NUR ---
BED ALARM, ALARMING. PATIENT UP TO BATHROOM USING 1P SBA AND FWW. PATIENT BACK TO BED. BED ALARM ON. PATIENT EDUCATED TO USE CALL LIGHT. PATIENT VERBILIZED UNDERSTANDING. PATIENT HAS NO FURTHER NEEDS. CALL LIGHT IN REACH.
[2024-10-13 03:03] LABS: THYROXINE FREE 0.9 ng/dL (0.9-1.7)
--- NOTE | 2024-10-13 03:09 | NUR ---
BED ALARM ANSWERED. PT AT EDGE OF BED AND STATED THE NEED TO USE BATHROOM. COIN TELLER SBA WITH FWW TO BATHROOM. PT VOIDED AND ASSISTED BACK TO BED. PT STATES NO FURTHER NEEDS AT THIS TIME. PT REMINDED TO USE CALL LIGHT AND CALL WITHIN REACH. BED ALARM ON.
[2024-10-13 05:54] VITALS: BP 123/82
--- NOTE | 2024-10-13 06:14 | NUR ---
BED ALARM SOUNDING, pt WITH LABORED BREATHING, COARSE COUGH, AUDIBLE WHEEZES. REFUSES BSC OFFERED. SPO2 99%. HR 118. AMBULATES TO RESTROOM FOR UNMEASURED VOID IN TOILET, MISSED HAT. BACK TO BED, AFEBRILE. SPO2 DIFFICULTY GETTING READING, RR 30, BREATHING LABORED. 2L OXYGEN BY NC APPLIED. pt NOT ANSWERING QUESTIONS REGARDING HOW SHES FEELING. RT PHONED AND IN ROOM. O2 INCREASED TO 3L OXYGEN BY NC, SPO2 92%. pt CLOSING EYES. PRIMARY RN IN ROOM EVALUATING pt.
--- NOTE | 2024-10-13 06:18 | NUR ---
MD BELTRAN UPDATED ON PATIENT STATUS VIA TELEPHONE. NEW ORDER RECEIVED. VERIFIED USING REPEAT BACK METHOD.
[2024-10-13 06:25] LABS: ANION GAP 18.9 (7-21); BUN/CREATININE RATIO 19.11 (6.0-28.6); CALCIUM 7.8 mg/dL (8.5-10.1); CREATININE, SERUM 2.04 mg/dL (0.55-1.02); MAGNESIUM 1.4 mg/dL (1.8-2.4); POTASSIUM 3.9 mmol/L (3.5-5.1)
[2024-10-13] MEDS ORDERED: FUROSEMIDE 20 MG/2 ML VIAL IV ONE (06:30)
--- NOTE | 2024-10-13 06:42 | NUR ---
SCHEDULED MEDICATION ADMINSITERED. NO FURTHER NEEDS. CALL LIGHT IN REACH. BED ALARM ON. LAB REMAINS IN ROOM.
[2024-10-13 06:49] VITALS: BP 123/82
[2024-10-13 06:54] LABS: BASOPHILS 0.3 % (0-2); EOSINOPHILS 0.2 % (0-6); HEMATOCRIT 30.9 % (35.0-50.0); LYMPHOCYTES 3.3 % (24-44); MCH 27.6 (27-36); MCHC 32.5 g/dl (30-36); MCV 84.9 fl (81-99); NEUTROPHILS 90.2 % (39-80); PLATELET COUNT 155 K/uL (140-440); RBC 3.64 M/ul (4.3-5.7)
[2024-10-13] MEDS ORDERED: MAGNESIUM SULFATE 2 GM/50 ML BAG IV SCH (07:15)
--- NOTE | 2024-10-13 07:15 | NUR ---
RECIEVED SHIFT REPORT. PT IS TRYING TO GET OUT OF BED, REFUSING TO WEAR OXYGEN. THIS RN AND LUNA QUINTANA ASSISTING PT TO COMMODE. DARLENE FU CALLED TO HELP PT BACK TO BED. THIS RN PLACED O2 BACK ON FACE, ABLE TO TOLERATE AT THIS TIME.
--- NOTE | 2024-10-13 08:29 | NUR ---
PATIENT WAS ASSISTED ON AND OFF THE COMMODE. 2PA BOOST IN BED BEFORE IMAGING COMES. PATIENT'S BLOOD SUGAR WAS CHECKED AND RECORDED. CALL LIGHT AND PERSONAL ITEMS ARE WITHIN REACH. NO OTHER CARES WERE REQUESTED.
[2024-10-13] MEDS ORDERED: SCOPOLAMINE 1 MG/3 DAYS PATCH 1 EACH TDSY TD SCH (09:00)
--- NOTE | 2024-10-13 09:10 | NUR ---
Spoke with Nay. Rn is attempting to get pt to keep her [address] Pt is refusing. I asked if she wants to cont. to treatment, pt stating, "no". Not feeling well today and per report ran a fever and has an increased cough. Will fu with Dr. Cesar.
--- NOTE | 2024-10-13 09:20 | NUR ---
[facility] called while I was in the room. Pt agrees to speak with dependency case manager. Phone given to pt. Notified 10 min. later pt hung up on Operations Officer Trust Department from [facility].
--- NOTE | 2024-10-13 10:13 | NUR ---
MORNING ASSESSMENT COMPLETE. THIS RN PLACED HUMIDIFICATION FOR O2. PT REMAINS NONCOMPLIANT WITH WEARING O2. LUNA SINGLETON IN ROOM ASSISTING WITH IV PLACEMENT. UNSUCCESSFUL BY THIS RN X2 AND LUNA SINGLETON X2. SCHOOL ADJUSTMENT COUNSELOR CALLED LUNA GARCIA WILL BE DOWN TO PLACE US IV. BED ALARM PLACED FOR PT SAFETY, CALL LIGHT IN REACH
--- NOTE | 2024-10-13 12:22 | NUR ---
PT REFUSING STAFF TO CLEAN HANDS OF BLOOD/SNOT AND PT REFUSING TO SHOWER.
[2024-10-13] MEDS ORDERED: MAGNESIUM SULFATE 50 ML IV ONE (12:44)
--- NOTE | 2024-10-13 12:46 | NUR ---
IN ROOM TO GIVE MEDICATION. PT OXYMASK NOT ON FACE, AFTER ASKING PT AND EDUCATING PT WHY THE OXYGEN IS NEEDED SHE STATES, NO. THIS RN ATTEMPTED AGAIN TO DISCUSS WITH PT THE IMPORTANCE OF OXYGEN AND PT MOVED OXYMASK TO FACE. BED ALARM ON FOR SAFETY, CALL LIGHT IN REACH
--- NOTE | 2024-10-13 13:00 | NUR ---
In to speak with pt while nurse asks pt if she will accept a telemetry unit. Pt denclines. I spoke with Nay and ask her if she would like to complete a POLST form as she really needs to let us know what her wishes are. Discussed if she doesn't state her wishes she will receive full treatment. Pt does not want full treatment, but states she doesn't know what she wants. I spoke with Ceci Yousif from [employer] after I left the pts room. Update given and I called Dr. Cesar and he will contact Ceci.
--- NOTE | 2024-10-13 13:15 | NUR ---
IN ROOM TO APPLY TELE, LUNA SINGLETON [facility], CASE MANAGEMENT IN ROOM. PT NOT WEARING OXYGEN, SPO2 CHECKED 99% ON RA. OXYGEN REMOVED. CALL LIGHT IN REACH, BED ALARM ON FOR SAFETY.
--- NOTE | 2024-10-13 13:30 | NUR ---
THIS RN IN ROOM TO APPLY TELEMETRY - PT REFUSING BY STATING "NO" WHEN EXPLAINED WHAT IT IS.
--- NOTE | 2024-10-13 13:46 | NUR ---
DISCONNECTED PT FROM IV MAG. BLOOD NOTED TO FACE AND HANDS FROM NOSE FROM WEARING OXYGEN. THIS RN ATTEMPTED TO CLEANSE PT AND PT YELLED "NO".
[2024-10-13 13:48] VITALS: BP 111/46
--- NOTE | 2024-10-13 14:00 | NUR ---
Returned to pts room with Dr. Cesar. He again discussed with pt if she wants to cont. care as she cont. to refuse treatment at times. Pt stating she cannot discharge. I attempted and then Dr. Cesar attempted to discuss pts wishes for a POLST. Pt then states she cannot make the decision and requests we call her brother, James Pedro [phone]. Pt doesn't want treatment and would not want to be transferred out if she has further cardiac problems. Pt cannot make a decision about CPR or intubation. I will call her brother.
--- NOTE | 2024-10-13 14:10 | NUR ---
Briefly spoke with Marsha, education manager of the floor. Notifed Nay has been blowing bloody nasal discharge throughout the day. At times she has been attempting to blow on the staff. If this cont. pt is to be discharged. UPdated of plan to dc pt to her home in [place] tomorrow. The hospital will pay for a taxi/[employer] van transport.
--- NOTE | 2024-10-13 14:39 | NUR ---
Called and spoke with pts brother, James. Updated we have not contacted as pt has declined for us to speak with him. She has now requested he make the decision if she should have CPR and intubation. I also updated, pt changed her mind after arriving and now requests full treatment, but declines most treatment. He confirmed he is willing to complete a POLST and states he did something similar with [facility]. I read the POLST to him with a second Rn, Kaleigh Julio in the room and using a speaker phone. He replied, "no" to CPR and "No" to intubation. He would like Nay to be able to return to the hospital for pain medications and oxygen, but nothing to extend her life. Polst was completed. He then let me know this is Nays routine to go to a hospital and refuse to leave. She will decline care until she is discharged. He states the last hospital was in [place]. He states she has not believed any Drziyad for the last 2 years and also refused treatment for a perforated bowel. He states she frequently believes medical staff lie to her. He would like a copy of the POLST form and a list of mortuaries [place]. He wanted to know what happens if she dies in our area. I let him know the POLST is sent to a registry and we will also scan the document into our medical records. If she passes away, his phone number an address is on the document. His phone number is also in our records he would be notified. I emailed him the POLST form and the phone number and address for [place] and
--- NOTE | 2024-10-13 14:49 | NUR ---
PT ASSISTED UP TO BSC TO VOID. PT PROVIDED WASH RAG TO CLEAN BLOOD FROM PICKING NOSE OFF HER FACE AND HANDS. PT INITIALLY REFUSED STATING "SHUT UP". PT DID EVENTUALLY CLEAN HER FACE AFTER DISENGAGING IN CONVERSATION. PT REFUSED ASSISTANCE IN ESHA CARE - FOUL ODOR PRESENT. PT AGAIN BLOWING NOSE TO AIR SPRAYING BLOOD. THIS RN CLEARLY TOLD PT THAT THIS IS A SAFETY HAZARD TO STAFF AND IF DONE AGAIN APPROPRIATE STEPS WOULD BE TAKEN SUCH. PT STATES UNDERSTANDING. CALL LIGHT IN REACH.
--- NOTE | 2024-10-13 14:51 | NUR ---
PATIENT HAS BEEN REEFUSING TREATMENT FROM NURSES BUT HAS ALLOWED VITALS AND BLOOD SUGAR CHECKS. BED ALARM RESET. CALL LIGHT AND PERSONAL ITEMS ARE WITHIN REACH.
--- NOTE | 2024-10-13 16:16 | NUR ---
PT IS RESTING IN BED, EYES CLOSED, BREATHING EVEN AND UNLABORED. BED ALARM ON FOR SAFETY, CALL LIGHT IN REACH
[2024-10-13 17:42] VITALS: BP 137/68
--- NOTE | 2024-10-13 17:59 | NUR ---
PATIENT IN BED AT THIS TIME. THIS ORGAN PIPE VOICER WENT INTO PATIENTS ROOM TO ASK PATIENT IF SHE WANTED A SHOWER OR A BED BATH. PATIENT STATED THAT SHE DID NOT WANT EITHER OF THOSE OPTIONS BUT HAD TO USE THE COMMODE. THIS ORGAN PIPE VOICER ASSISTED PATIENT TO BEDSIDE COMMODE, THIS ORGAN PIPE VOICER ASKED IF SHE COULD WIPE DOWN PATIENTS LEGS WITH BED BATH WIPES. PATIENT AGREED. THIS ORGAN PIPE VOICER GOT PATIENT BACK TO BED, PATIENT REFUSED TO CHANGE GOWN AND SOCKS. THIS ORGAN PIPE VOICER THEN ASKED IF WE COULD CHANGE HER GOWN, PATIENT STATED "LEAVE ME ALONE" THIS ORGAN PIPE VOICER ASKED TO CHANGE HER GOWN TO MAKE HER FEEL BETTER AND DISTRACTED PATIENT WITH QUESTIONS AND CHANGED PATIENTS GOWN. CALL LIGHT WITHIN REACH, NO FURTHER NEEDS AT THIS TIME.
--- NOTE | 2024-10-13 18:31 | NUR ---
PT REPOSITIONED IN BED, AUDIBLE WHEEZE HEARD. PT RESTING IN BED, EYES CLOSED, BREATHING EVEN, TACHY, UNLABORED. BED ALARM ON FOR PT SAFETY, CALL LIGHT IN REACH
--- NOTE | 2024-10-13 19:31 | NUR ---
RECEIVED REPORT. PT RESTING IN BED WITH EYES CLOSED. RISE AND FALL OF CHEST OBSERVED. CALL LIGHT IN REACH
--- NOTE | 2024-10-13 19:41 | NUR ---
PATIENT IN BED AT THIS TIME. THIS DRUM PRINTER ASSISTED PATIENT TO BEDSIDE COMMODE AND THEN BACK TO BED. CALL LIGHT WITHIN REACH, NO FURTHER NEEDS AT THIS TIME.
[2024-10-13 20:24] VITALS: BP 130/69
--- NOTE | 2024-10-13 20:28 | NUR ---
INFORMATION TECHNOLOGY INTERNSHIP OBTAINED VITALS AND I&O. PT ICE WATER REFILLED. PT STATES NO FURTHER NEEDS AT THIS TIME. CALL LIGHT WITHIN REACH AND BED ALARM ON.
--- NOTE | 2024-10-13 21:20 | NUR ---
ASSESSMENT, EVENING MEDS. PT INITIALLY DECLINED MEDS, THOUGH AGREES TO TAKE SELECT MEDS AFTER EDUCATION. PT INSTRUCTED NOT TO TAKE HOME TYLENOL WHICH SHE STATES IS IN HER PURSE. PT AGREES. PT PURSE NOT IN REACH. IV ABX STARTED LATE D/T INITIAL REFUSAL. PT DECLINES SENNAKOT AND RESPIRATORY TREATMENT. CALL LIGHT IN REACH, BED ALARM ACTIVE
[2024-10-13] MEDS ORDERED: AZITHROMYCIN 500 MG VIAL ONE (22:29)
--- NOTE | 2024-10-13 22:42 | NUR ---
GIVEN AZITHROMYCIN. DECLINES SENNAKOT. PT ALERT, THOUGH SLEEPY, QUICKLY DOZES OFF. NO NEEDS AT THIS TIME. DECLINES BREATHING TREATMENT FOR NOW. CALL LIGHT IN REACH, BED ALARM ACTIVE
--- NOTE | 2024-10-13 23:17 | NUR ---
CALL LIGHT ANSWERED. PT NEEDED TO USE BATHROOM. HEALTH PLAN ADVISOR 1PA WITH FWW TO BSC. PT VOIDED AND ASSISTED BACK TO BED. PT STATES NO FURTHER NEEDS AT THIS TIME. CALL LIGHT WITHIN REACH AND BED ALARM ON.
--- NOTE | 2024-10-14 00:05 | NUR ---
RESPONDED TO BEEPING IV, DISCONNECTED ABX. PT REQUESTS TURKEY SANDWICH, NONE AVAILABLE. GIVEN KLAUDIA CRACKERS AT REQUEST. NO OTHER NEEDS PRESENTLY. CALL LIGHT IN REACH, BED ALARM ACTICE
--- NOTE | 2024-10-14 02:04 | NUR ---
PT RESTING IN BED WITH EYES CLOSED, RISE AND FALL OF CHEST OBSERVED. CALL LGIHT IN REACH, BED ALARM ACTIVE
[2024-10-14 03:06] VITALS: BP 106/57
[2024-10-14 03:07] VITALS: BP 106/57
--- NOTE | 2024-10-14 04:12 | NUR ---
PT RESTING IN BED WITH EYES CLOSED, RISE AND FALL OF CHEST NOTED. BED ALARM ACTIVE
--- NOTE | 2024-10-14 05:31 | NUR ---
PT SELECTIVELY DECLINES SOME MEDICATIONS AND CARE. OPEN TO SOME CARE AFTER EDUCATION. N: ALERT, ORIENTED THOUGH FORGETFUL. HARD OF HEARING R: COARSE LUNG SOUNDS AND EXPIRATORY WHEEZING. TACHYPNEA. DECLINES O2 AND RESPIRATORY TX OVERNIGHT GI: TOLERATING CONSISTENT CARB DIET : UP FREQUENTLY TO COMMODE/BATHROOM MS: 1PA WITH OWN 4WW ACCESS: US GUIDED IV L FOREARM WITH IV AZITHROMYCIN AND CEFRITAXONE INTERMITTENTLY PLAN: [facility] TO ARRIVE AT 0900. PLAN FOR D/C HOME VIA TAXI AT 10:30.
[2024-10-14 05:36] VITALS: BP 113/56
[2024-10-14 05:37] VITALS: BP 113/56
--- NOTE | 2024-10-14 05:38 | NUR ---
BED ALARM ANSWERED. PT STATING NEED TO USE BATHROOM. SCALLOP BINDER 1PA WITH FWW TO BSC. PT VOIDED AND ASSISTED BACK TO BED. VITALS AND I&O OBTAINED AND DOCUMENTED. ICE WATER REFILLED AND PT GIVEN ICE CHIPS UPON REQUEST. PT STATES NO FURTHER NEEDS AT THIS TIME. CALL LIGHT WITHIN REACH AND BED ALARM ON.
[2024-10-14 06:10] LABS: ANION GAP 15.3 (7-21); BUN/CREATININE RATIO 16.04 (6.0-28.6); CALCIUM 7.7 mg/dL (8.5-10.1); CREATININE, SERUM 1.87 mg/dL (0.55-1.02); MAGNESIUM 2.2 mg/dL (1.8-2.4); POTASSIUM 3.3 mmol/L (3.5-5.1)
--- NOTE | 2024-10-14 06:29 | NUR ---
CALL FROM LAB, NEED ADD'L LAVENDER TUBE. PT STATES SHE "HAS NO MORE BLOOD LEFT" AND ADAMANTLY DECLINES BLOOD DRAW. LAB NOTIFIED. GIVEN WARM BLANKET, NO OTHER NEEDS PRESENTLY. CALL LIGHT IN REACH, BED ALARM ACTIVE.
--- NOTE | 2024-10-14 07:09 | NUR ---
RECIEVED SHIFT REPORT FROM LUNA HENDERSON. PT IS RESTING IN BED, EYES CLOSED, BREATHING EVEN AND UNLABORED. BED ALARM ON FOR SAFETY AND CALL LIGHT IN REACH.
[2024-10-14] MEDS ORDERED: POTASSIUM CHLORIDE 10 MEQ TABCR PO ONE (07:45)
[2024-10-14] MEDS ORDERED: FUROSEMIDE 20 MG/2 ML VIAL IV ONE (07:45)
--- NOTE | 2024-10-14 08:30 | NUR ---
PT REFUSING TO WAKE UP TO TAKE MORNING MEDICATIONS. ANDRZEJ RN IN ROOM TO HELP BOOST PT, RUBY AT BEDSIDE DISCUSSING WITH PT TO WAKE UP TO TAKE MEDICATION. PT WAS ABLE TO TAKE MEDICATION, USED THE BEDSIDE COMMODE. THIS RN EDUCATIONED PT ON FLUID ON LUNGS AND IMPORTANCE OF SITTING IN RECLINER, PT NONCOMPLIANT, BUT WAS WILLING TO SIT IN CHAIR FOR AWHILE. DISCUSSED THAT [facility] WILL BE HER THIS MORNING TO TALK TO PT. CALL LIGHT IN REACH. CHAIR ALARM ON FOR SAFETY.
--- NOTE | 2024-10-14 09:10 | NUR ---
LAB CALLED, UNABLE TO GET CBC, BLOOD CLOTTED ON DRAW. MD AWARE, PRIMARY RN - CJ INFORMED WELL. NO NEW ORDERS, PT TO DISCHARGE TODAY STILL.
--- NOTE | 2024-10-14 09:10 | NUR ---
In to speak with pt and Shanda South from [facility]. She is interviewing pt. Nay is up in the chair and awake answer questions. Tv is very loud and asked and attempted to decrease the volume. Nay jerked the remote from my hand and yelled, "No". Shanda stated it was ok, she could talk over he TV. Pt answered some questions. Justine will stop in my office when she finishes. Justine stopped at my office and requested the pts chart. Chart was printed and she and pt agreed to meet Tues to cont. for pt to obtain vermin exterminator medicaid. Pt wanting to have placement into [facility]. Pt does not want to give them her financial info, but will discuss on Tues.
--- NOTE | 2024-10-14 09:10 | NUR ---
[facility] HERE TO SEE PATIENT. PT IS ON COMMODE. DARLENE SKINNER IN ROOM WITH PT.
[2024-10-14 09:16] VITALS: BP 118/55
--- NOTE | 2024-10-14 09:17 | NUR ---
PATIENT WAS IN HER CHAIR AT THIS TIME, SHE NEEDED ASSISTANCE TO THE COMMODE AND BACK TO THE CHAIR. CASE OPERATOR CHARTED VITALS AND I&O'S, A WARM BLANKET, FRESH ICE WATER AND A CUP OF ICE. CALL LIGHT WITH IN REACH AND NOTHING ELSE NEEDED AT THIS TIME.
--- NOTE | 2024-10-14 09:48 | NUR ---
PATIENT IN CHAIR AT THIS TIME. THIS CLERICAL AND OFFICE SUPPORT WORKERS REMVOED PATIENTS IV CATHETER IN LEFT FOREARM. CALL LIGHT WITHIN REACH, NO FURTHER NEEDS.
--- NOTE | 2024-10-14 10:15 | NUR ---
Sarita Coyle from the Taxi service. He will be here in 10 min or so to pick Nay up. Charge nurse notified.
[2024-10-14] MEDS ORDERED: METOPROLOL SUCC25 MG PO (10:24)
[2024-10-14] MEDS ORDERED: AZITHROMYCIN250 MG PO (10:25)
[2024-10-14] MEDS ORDERED: CEFDINIR300 MG PO (10:26)
[2024-10-14] MEDS ORDERED: LISINOPRIL2.5 MG PO (15:37)
[2024-10-14] MEDS ORDERED: SPIRONOLACTONE25 MG PO (15:37)
[2024-10-14] MEDS ORDERED: JARDIANCE10 MG PO (15:37)
--- NOTE | 2024-10-14 15:45 | NUR ---
Notified by Dr. Cesar he received pts echo. He would like pt call in a different medication for this pt. He is aware pt does not have a phone. I let him know she lives with her ex Eran, but would not give us his phone. I can call Justine from [facility] as she did give her the phone number and ask her to call Eran to help her warehouse order picker her prescriptions she will dc with today. I called Justine and asked if she would call Eran and let him know another rx has been called in. Justine from [facility] will call him. I also gave her my phone number and asked if he had any questions to call us and we will update.
== END 2024-10-14 10:29 | disposition home or self-care (01) | DRG 951 ==
LOC: MS 20:15
PROVIDERS: Family Medicine; ADMIT Student in an Organized Health Care Education/Training Program; ATTEND Student in an Organized Health Care Education/Training Program
DX: Z51.5 Encounter for palliative care (principal); J18.9 Pneumonia, unspecified organism; I21.09 ST elevation (STEMI) myocardial infarction involving other coronary artery of anterior wall; N39.0 Urinary tract infection, site not specified; N17.9 Acute kidney failure, unspecified; J81.1 Chronic pulmonary edema; Z66 Do not resuscitate; E87.6 Hypokalemia; E83.42 Hypomagnesemia; I95.9 Hypotension, unspecified; E11.9 Type 2 diabetes mellitus without complications; E03.9 Hypothyroidism, unspecified; Z91.199 Patient's noncompliance with other medical treatment and regimen due to unspecified reason; Z88.5 Allergy status to narcotic agent; I27.20 Pulmonary hypertension, unspecified; I34.0 Nonrheumatic mitral (valve) insufficiency; Z85.3 Personal history of malignant neoplasm of breast; I25.10 Atherosclerotic heart disease of native coronary artery without angina pectoris; Z99.81 Dependence on supplemental oxygen
CPT/HCPCS: 36415; 36592; 71045; 80048; 80053; 81001; 83605; 83735; 84439; 84443; 85025; 87088; 87502; 93306; 94760; 94762; 97162; 97166; A9270; J0456; J0696; J1650; J1815; J1938; J3475; J7030; J7060; U0002